=== PATIENT | female | born 1955 ===

== ENCOUNTER 2022-04-07 08:40 | Outpatient (CLI) | payer OTHER | END 2022-04-07 08:50 | disposition home or self-care (01) | LOC: PPH VACUNA 08:40 | PROVIDERS: ATTEND Emergency Medicine Pediatric Emergency Medicine | DX: Z23 Encounter for immunization (principal) ==

== ENCOUNTER 2022-07-13 08:49 | Outpatient (CLI) | payer OTHER | END 2022-07-13 08:54 | disposition home or self-care (01) | LOC: RAD 08:49 | PROVIDERS: ATTEND General Practice | DX: M10.9 Gout, unspecified (principal) ==

== ENCOUNTER 2025-05-20 12:18 | Outpatient (CLI) | payer OTHER | END 2025-05-20 12:21 | disposition home or self-care (01) | LOC: RAD 12:18 | PROVIDERS: ATTEND Physical Medicine & Rehabilitation | DX: M54.2 Cervicalgia (principal) ==

== ENCOUNTER 2025-07-04 09:50 | Outpatient (CLI) | payer OTHER | END 2025-07-04 09:51 | disposition home or self-care (01) | LOC: NUCLEAR 09:50 | PROVIDERS: ATTEND Specialist | DX: M81.0 Age-related osteoporosis without current pathological fracture (principal) ==